=== PATIENT | female | born 1990 | race American Indian/Alaskan Native ===

== ENCOUNTER 2017-09-21 17:43 | Emergency (ER) | payer OTHER, BC ==
[2017-09-21] MEDS ORDERED: MOTRIN PO ONE (22:14)
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
[2017-09-21 22:29] VITALS: BP 137/89
== END 2017-09-21 22:40 | disposition home or self-care (01) ==
LOC: ED 17:43
DX: S13.4XXA Sprain of ligaments of cervical spine, initial encounter (principal); V89.2XXA Person injured in unspecified motor-vehicle accident, traffic, initial encounter; Y93.9 Activity, unspecified; Y99.9 Unspecified external cause status; Y92.410 Unspecified street and highway as the place of occurrence of the external cause
CPT/HCPCS: 81025; 99283